=== PATIENT | male | born 1975 | race Caucasian/White ===

== ENCOUNTER 2019-05-21 13:19 | Inpatient (IN) | payer SELFPAY ==
[2019-05-21 13:42] LABS: Actual Bicarbonate (HCO3a) 20.7 mEq/L (22-28); Analyzer IN Cardio ER; Base Excess (BEa) -7.1 mEq/L (-2.0 to +3.0); CO2 Tension 49.7 mmHg (35.0-45.0); Calcium, Ionized 1.07 mmol/L (1.12-1.30); Carboxyhemoglobin (COHb) 3.8 gm% (0.0-3.0); O2 Tension (PaO2) 93.3 mmHg (80.0-100.0); Potassium - ABG Lab 3.79 mmol/L (3.70-5.30); Puncture Site RRA; pH, Arterial 7.24 (7.35-7.45)
[2019-05-21 13:43] LABS: ALV-art Gradient 272.375 (0-20)
[2019-05-21] MEDS ORDERED: Piperacillin/Tazobactam 4.5 GM VIAL ONE (13:50)
--- NOTE | 2019-05-21 13:52 | RAD ---
PORTABLE AP CHEST XRAY: HISTORY: Post CPR. COMPARISON: None. FINDINGS: Endotracheal tube is noted in place with the tip overlying T4-5 level and above the level of the padmini na. Nasogastric tube has been placed, and the tip overlies the distal esophagus. The most proximal sidehole is seen at the level of the christiane. Nasogastric tube should be advanced. Cardiac silhouett e is magnified by projection. Pulmonary vasculature is within normal limits. No pneumothorax or ple ural effusion is seen. A cardiac pacing device overlies the right lower chest/upper abdomen. Osseou s structures have a normal appearance. IMPRESSION: 1. Nasogastric tube noted in place which overlies the mid to distal esophagus and should be advanced . 2. Endotracheal tube noted in place which is above the level of the christiane. POS: JORGITO
--- NOTE | 2019-05-21 13:54 | RAD ---
AP ABDOMINAL RADIOGRAPH: HISTORY: CPR progress. Nasogastric tube placement. COMPARISON: Chest x-ray also obtained on this date prior to this exam. FINDINGS: A nasogastric tube was seen on the comparison chest x-ray and overlies the mid to distal esophagus, a nd the nasogastric tube should be advanced. Nasogastric tube is not seen on this view of the abdomen . Visualized bowel gas pattern is nonspecific. Pacing devices overlie the left abdomen and right lo wer chest. Osseous structures have a normal appearance. No suspicious visualized on this limited ex am. IMPRESSION: Nasogastric tube is not seen overlying the upper abdomen. Comparison chest x-ray obtained on this da te notes that the tip of the nasogastric tube overlies the mid to distal esophagus, and the nasogastr ic tube should be advanced. POS: JORGITO
[2019-05-21 14:02] LABS: #Lymphocytes 0.8 thou/uL (1.20-3.40); #Monocytes 0.4 thou/uL (0.11-0.59); #Neutrophils 9.7 thou/uL (1.40-6.50); %Basophils 0.1 % (0.0-1.0); %Eosinophils 0.3 % (0.0-10.0); %Lymphocytes 6.9 % (21.0-51.0); %Neutrophils 88.7 % (42.0-75.0); Hemoglobin 17.4 g/dL (14.0-18.0); Mean Corpuscular HGB CONC 33.3 g/dL (32.0-36.0); Mean Corpuscular Volume 93.1 fL (78.0-98.0); Platelet Count 139 thou/uL (130-400); RBC Distribution Width 12.3 % (11.5-14.5); Red Blood Cell (RBC) Count 5.61 mill/uL (4.70-6.10); White Blood Cell (WBC) Count 10.9 thou/uL (4.8-10.8)
[2019-05-21] MEDS ORDERED: Fentanyl 100 MCG/2 ML VIAL ONE (14:06)
[2019-05-21 14:20] LABS: Phosphorus 4.8 mg/dL (2.3-4.7)
[2019-05-21 14:22] LABS: ALT (SGPT) 42 U/L (8-55); AST (SGOT) 68 U/L (5-34); Albumin 3.9 g/dL (3.5-5.0); Alkaline Phosphatase 78 U/L (40-150); Anion Gap 17 mmol/L (10-20); BUN (Urea Nitrogen) 11 mg/dL (8.9-20.6); Bilirubin, Total 0.4 mg/dL (0.2-1.2); CK (CPK) 959 U/L (30-200); Calc. Creatinine Clearance 0 mL/min (70-130); Calcium 7.8 mg/dL (7.8-10.44); Carbon Dioxide 21 mmol/L (22-29); Chloride 103 mmol/L (98-107); Estimated GFR-MDRD Greater than 90; Glucose 107 mg/dL (70-105); Lipase 12 U/L (8-78); Potassium 3.9 mmol/L (3.5-5.1); Protein, Total 6.9 g/dL (6.0-8.3); Sodium 137 mmol/L (136-145)
[2019-05-21 14:30] LABS: Actual Bicarbonate (HCO3a) 21.1 mEq/L (22-28); Analyzer IN Cardio ER; Base Excess (BEa) -4.6 mEq/L (-2.0 to +3.0); CO2 Tension 41.2 mmHg (35.0-45.0); Calcium, Ionized 1.05 mmol/L (1.12-1.30); Carboxyhemoglobin (COHb) 3.1 gm% (0.0-3.0); Hemoglobin (Hb) 16.7 g/dL (14.0-18.0); O2 Tension (PaO2) 66.6 mmHg (80.0-100.0); Potassium - ABG Lab 4.08 mmol/L (3.70-5.30); pH, Arterial 7.33 (7.35-7.45)
[2019-05-21 14:32] LABS: Puncture Site RRA
[2019-05-21 14:32] LABS: CKMB 30.2 ng/mL (0-6.6)
[2019-05-21] MEDS ORDERED: fentaNYL Citrate/PF 2,000 MCG in Sodium Chloride 0.9% 60 ML IV SCH ×2 (14:49→16:52)
--- NOTE | 2019-05-21 14:52 | CT ---
Exam: CT brain PROVIDED CLINICAL HISTORY: Altered mental status COMPARISON: None FINDINGS: The ventricular system is normal in size and morphology. No evidence for intracranial hemorrhage or mass effect. The extracranial soft tissues and osseous structures demonstrate no evidence for an acute abnormality. IMPRESSION: No evidence for intracranial hemorrhage or mass effect.
[2019-05-21 14:57] LABS: Acetaminophen Less than 6.0 mcg/mL (10.0-30.0); Alcohol 126 mg/dL (Less than 10); Salicylate Less than 8.0 mg/dL (15.0-30.0)
[2019-05-21] MEDS ORDERED: Lorazepam 2 MG/ML VIAL ONE (15:02)
[2019-05-21] MEDS ORDERED: Propofol 1,000 MG/100 ML VIAL IV ONE (15:07)
[2019-05-21 16:04] LABS: Bacteria/HPF None Seen HPF (None Seen); Bilirubin Negative (Negative); Blood, Urine 2+ (Negative); Clarity Clear (Clear); Glucose, Urine (Dipstick) 70 mg/dL (Negative); Leukocyte Negative Leu/uL (Negative); Nitrite Negative (Negative); Protein, Urine (Dipstick) 70 mg/dL (Neg-Trace); RBC/HPF 0-3 HPF (0-3); Squamous Epithelial 0-3 HPF (0-3); Urobilinogen Normal mg/dL (Less than 2); WBC/HPF 0-3 HPF (0-3)
[2019-05-21 16:06] LABS: Amphetamine Not Detected (NotDetected); Barbiturates Screen Not Detected (NotDetected); Benzodiazepine Screen Not Detected (NotDetected); Cocaine Metabolite Screen Not Detected (NotDetected); Medtox Control Line Valid? VALID (VALID); Medtox Reader # READER 4; Methadone Not Detected (NotDetected); Methamphetamine Not Detected (NotDetected); Opiate Screen Not Detected (NotDetected); Oxycodone Screen Not Detected (NotDetected); Phencyclidine (PCP) Not Detected (NotDetected); THC/Cannabinoid Screen Not Detected (NotDetected); Tricyclic Screen Not Detected (NotDetected)
[2019-05-21 16:16] LABS: Sperm/HPF 1+ HPF (None Seen)
[2019-05-21] MEDS ORDERED: Ondansetron ODT 4 MG TAB SL PRN (16:23)
[2019-05-21] MEDS ORDERED: Sodium Chloride 0.9% 1,000 ML IV SCH (16:23)
[2019-05-21] MEDS ORDERED: Ondansetron PF 4 MG/2 ML Vial IVP PRN ×2 (16:23→16:50)
[2019-05-21] MEDS ORDERED: Propofol 1,000 MG/100 ML VIAL IV PRN ×2 (16:27→16:50)
[2019-05-21] MEDS ORDERED: Propofol BOLUS 1,000 MG/100 ML VIAL IV PRN ×2 (16:27→16:52)
[2019-05-21] MEDS ORDERED: Dextrose 50% Abboject 50 ML SYRINGE ONE (16:37)
[2019-05-21] MEDS: Dextrose 5 % And 0.9 % NaCl 1,000 ML IV SCH (16:45)
--- NOTE | 2019-05-21 16:46 | RAD ---
Portable frontal chest radiograph: 05/21/2019 COMPARISON: 05/21/2019 HISTORY: Intubated patient FINDINGS: This study was performed at 4:23 PM and compared to the study performed 1:11 PM. Stable end otracheal tube. Nasogastric tube has been advanced. Distal tip of nasogastric tube overlies the gastric air bubble. Heart and mediastinal contours are stable. No lobar consolidation or alveolar jackie ma. Supine imaging is provided, limiting assessment for pneumothorax and pleural fluid. IMPRESSION: Portable chest radiograph as detailed above.
[2019-05-21] MEDS ORDERED: Lorazepam 2 MG/ML VIAL SLOW IVP PRN (16:50)
[2019-05-21] MEDS ORDERED: Ventilator Sedation Protocol 1 EACH FS ONE (16:50)
[2019-05-21] MEDS ORDERED: Dextrose 50% Abboject 50 ML SYRINGE SLOW IVP PRN (16:50)
[2019-05-21] MEDS ORDERED: Dextrose 5% in Water 1,000 ML IV PRN (16:50)
[2019-05-21] MEDS ORDERED: Fentanyl BOLUS 250 ML IVPB PRN (16:52)
[2019-05-21] MEDS ORDERED: DISCONTINUE PREVIOUS NARCOTIC PAIN MEDICATIONS AND BENZODIAZEPINES FS SCH (16:52)
[2019-05-21] MEDS ORDERED: Morphine 2 MG/ML SYRINGE SLOW IVP PRN (16:52)
[2019-05-21 17:07] LABS: #Lymphocytes 2.3 thou/uL (1.20-3.40); #Monocytes 0.8 thou/uL (0.11-0.59); #Neutrophils 13.6 thou/uL (1.40-6.50); %Basophils 0.1 % (0.0-1.0); %Eosinophils 0.3 % (0.0-10.0); %Lymphocytes 13.8 % (21.0-51.0); %Monocytes 4.9 % (0.0-10.0); Mean Corpuscular HGB CONC 32.8 g/dL (32.0-36.0); Mean Corpuscular Hemoglobin 30.5 pg (27.0-31.0); Mean Corpuscular Volume 93.1 fL (78.0-98.0); Mean Platelet Volume 7.1 fL (7.4-10.4); Platelet Count 159 thou/uL (130-400); RBC Distribution Width 12.2 % (11.5-14.5); Red Blood Cell (RBC) Count 5.58 mill/uL (4.70-6.10); White Blood Cell (WBC) Count 16.8 thou/uL (4.8-10.8)
[2019-05-21 17:30] LABS: ALT (SGPT) 46 U/L (8-55); AST (SGOT) 97 U/L (5-34); Albumin 3.7 g/dL (3.5-5.0); Alkaline Phosphatase 76 U/L (40-150); Anion Gap 14 mmol/L (10-20); BUN (Urea Nitrogen) 11 mg/dL (8.9-20.6); Bilirubin, Total 0.7 mg/dL (0.2-1.2); Calc. Creatinine Clearance 0 mL/min (70-130); Calcium 7.8 mg/dL (7.8-10.44); Carbon Dioxide 22 mmol/L (22-29); Chloride 106 mmol/L (98-107); Estimated GFR-MDRD Greater than 90; Globulin 2.9 g/dL (2.4-3.5); Glucose 84 mg/dL (70-105); Potassium 4.3 mmol/L (3.5-5.1); Protein, Total 6.6 g/dL (6.0-8.3); Sodium 138 mmol/L (136-145)
[2019-05-21 17:44] VITALS: BMI 23.0
--- NOTE | 2019-05-21 18:35 | PDOC.FPRHP ---
- History of Present Illness Chief Complaint: AMS, Found Down History of Present Illness: The patient was incapacitated at the time of the evaluation, so the HPI was obtained from ED staff and relatives who happened to be in the ED. Mr. Mckeon has allegedly been espousing suicidal ideations over the past three days and the patient has been drinking whiskey. Family members also suspect that the patient may have overdosed on insulin, which he uses to control his Type 1 Diabetes. He was last seen at 0815 and he was found down at 1100 by his mother, at which time EMS were notified. His initial blood glucose was too low to register, and he was subsequently found to be in PEA. CPR with chest compression was performed for 3 minutes, at which time ROSC was achieved. He was intubated in the field and transported to the ED. ED Course: While in the ED, blood glucose was stabilized to a value of 104. He remained intubated, and EKG showed a rhythm consistent with sinus tachycardia. Physical exam yielded pinpoint pupils. CXR revealed no acute cardiopulmonary processes and serum EtOH levels were measured at 126. - Allergies/Adverse Reactions Allergies Allergy/AdvReac Type Severity Reaction Status Date / Time No Known Drug Allergies Allergy Unverified 05/21/19 14:47 - Home Medications Medication Instructions Recorded Confirmed Type HumuLIN 70/30 15 unit SC HS 05/21/19 05/21/19 History HumuLIN 70/30 30 unit SC DAILY-AC 05/21/19 05/21/19 History - History PMHx: DM1, SI, EtOH Abuse PSHx: Unknown FHx: Unknown Social: EtOH Abuse - Review of Systems ROS unobtainable: due to endotracheal tube - Vital signs BP: [138/80] HR: [74] RR: [] Tmax: [98.8] Pox: []% on [] Wt: [] - Physical Exam Constitutional: other (Intubated) HEENT: no scleral icterus, MMM, other (Pinpoint pupils) Neck: supple, FROM, trachea midline, no JVD Chest: no lesions Heart: RRR, normal S1/S2, no murmurs/rubs/gallops, pulses present, no edema Lungs: other (Intubated) Abdomen: soft, non-tender, no masses/distention, other (Diminished bowel sounds) Musculoskeletal: normal structure Neurological: other (The patient seized in the ED during the examination and was given 2 mg Alprazolam) Skin: no rash/lesions, no jaundice Heme/Lymphatic: no purpura FMR H&P: Results - Labs Result Diagrams: 05/21/19 17:01 05/21/19 17:01 Lab results: WBC 16.8 thou/uL (4.8-10.8) H 05/21/19 17:01 Hgb 17.0 g/dL (14.0-18.0) 05/21/19 17:01 Hct 51.9 % (42.0-52.0) 05/21/19 17:01 MCV 93.1 fL (78.0-98.0) 05/21/19 17:01 Plt Count 159 thou/uL (130-400) 05/21/19 17:01 Neutrophils % 81.0 % (42.0-75.0) H 05/21/19 17:01 ABG pH 7.33 (7.35-7.45) L 05/21/19 14:26 ABG pCO2 41.2 mmHg (35.0-45.0) 05/21/19 14:26 ABG pO2 66.6 mmHg (80.0-100.0) L 05/21/19 14:26 Sodium 138 mmol/L (136-145) 05/21/19 17:01 Potassium 4.3 mmol/L (3.5-5.1) 05/21/19 17:01 Chloride 106 mmol/L (98-107) 05/21/19 17:01 Carbon Dioxide 22 mmol/L (22-29) 05/21/19 17:01 BUN 11 mg/dL (8.9-20.6) 05/21/19 17:01 Creatinine 0.82 mg/dL (0.7-1.3) 05/21/19 17:01 Glucose 84 mg/dL (70-105) 05/21/19 17:01 Calcium 7.8 mg/dL (7.8-10.44) 05/21/19 17:01 Total Bilirubin 0.7 mg/dL (0.2-1.2) 05/21/19 17:01 AST 97 U/L (5-34) H 05/21/19 17:01 ALT 46 U/L (8-55) 05/21/19 17:01 Alkaline Phosphatase 76 U/L (40-150) 05/21/19 17:01 Creatine Kinase 959 U/L (30-200) H 05/21/19 13:49 CK-MB (CK-2) 30.2 ng/mL (0-6.6) H* 05/21/19 13:48 Serum Total Protein 6.6 g/dL (6.0-8.3) 05/21/19 17:01 Albumin 3.7 g/dL (3.5-5.0) 05/21/19 17:01 Lipase 12 U/L (8-78) 05/21/19 13:49 Urine Ketones Negative mg/dL (Negative) 05/21/19 14:20 Urine Blood 2+ (Negative) A 05/21/19 14:20 Urine Nitrite Negative (Negative) 05/21/19 14:20 Ur Leukocyte Esterase Negative Angelo/uL (Negative) 05/21/19 14:20 Urine RBC 0-3 HPF (0-3) 05/21/19 14:20 Urine WBC 0-3 HPF (0-3) 05/21/19 14:20 Ur Squamous Epith Cells 0-3 HPF (0-3) 05/21/19 14:20 Urine Bacteria None Seen HPF (None Seen) 05/21/19 14:20 FMR H&P: A/P - Problem List (1) Acute hypoxemic respiratory failure Current Visit: Yes Status: Acute Code(s): J96.01 - ACUTE RESPIRATORY FAILURE WITH HYPOXIA (2) Diabetes Current Visit: Yes Status: Acute Code(s): E11.9 - TYPE 2 DIABETES MELLITUS WITHOUT COMPLICATIONS (3) ETOH abuse Current Visit: Yes Status: Acute Code(s): F10.10 - ALCOHOL ABUSE, UNCOMPLICATED (4) Suicidal behavior Current Visit: Yes Status: Acute Code(s): R46.89 - OTHER SYMPTOMS AND SIGNS INVOLVING APPEARANCE AND BEHAVIOR (5) Hypoglycemia Current Visit: Yes Status: Acute Code(s): E16.2 - HYPOGLYCEMIA, UNSPECIFIED (6) SIRS (systemic inflammatory response syndrome) Current Visit: Yes Status: Acute Code(s): R65.10 - SIRS OF NON-INFECTIOUS ORIGIN W/O ACUTE ORGAN DYSFUNCTION - Plan 1. AMS, 2/2 to Hypoglycemia vs. EtOH Abuse vs. Infectious Etiology -Patient found unresponsive with undetectable blood glucose, EtOH likely a contributing factor -Elevated WBCs and low spO2 meet criteria for SIRS -Blood cultures and urine cultures drawn in ED -Empiric antibiotic therapy of Vancomycin and Zosyn initiated -Patient currently intubated and on respiratory support -Respiratory Consulted -Witness seizure in the ED - Alprazolam 2 mg administered immediately -Hypoglycemia Protocol -Q1H Accuchecks -Continue to monitor for break-through seizures - administer Alprazolam as needed -Admit to the ICU with close monitoring 2. DM, Type 1 -Hypoglycemia Protocol -Q1H Accuchecks -Determine type and amount of daily insulin requirement from patient's family 3. Suicidal Ideation -Consult MHMR following stabilization 4. EtOH Abuse -Consult MHMR following stabilization Dispo: Patient's status remains guarded. Continue to protect airway and maintain respiratory support. Continue Hypoglycemia Protocol and Q1H Accuchecks. Await blood and urine cultures and DC antibiotics if cultures are negative after 48H. Expected LOS > 48H. FMR H&P: Upper Level - Plan Date/Time: 05/21/191820 I, Zeferino nieves PGY2, have evaluated this patient and agree with findings/ plan as outlined by internal affairs investigator resident. Pertinent changes/additions are listed here. 44yo M presents via EMS after going in to cardiac arrest and achieving ROSC. Pt intubated and most of the history was obtained from EMS/family. Pt reportedly had been saying for several days that he had intentions to kill himself and he had been drinking heavily. Pt was found down at home, noted cardiac arrest, administered 3min of CPR and achieved ROSC. Pt was intubated in ED and BG was read as "low" D50 administered and pt began to have seizure like activity. He was then put on propafol drip. Assesment and plan as follows. s/p rosc A- intubated and currently on propofol drip. Pt was in asystole prior to ROSC. P- admit to CCU -sedation protocol -D5W at 125/hr -consult pulm hypoglycemia A- likely cause of arrest and seizure like activity. P- D5W -hypoglycemia protocol -D50prn -accucheck q1 seizures A- likely from hypoglycemia, s/p ativan x2 and propofol drip P- continue propofol drip -will monitor for seizure like activity on sedation vacations/after extubation -consider EEG hypothermia/SIRS A- likely 2/2 hypoglycemia. started on vanc zosyn in ED P- continue ABX considering pts fragile state -f/u BCx, UCx Possible suicidal behavior A- pt family stated pt had SI days leading up to admission P- will re-eval once conscious and consult MHMR when medically stable EtOH abuse A- pt has hx of drinking lots of beer but recently took up liquor. Pt found by mary ann. ETOH 126 on admission P- ASE protocol, ativan prn CODE: full, will verify with next of kin Addendum - Attending - Attending Attestation Date/Time: 05/21/192032 I personally evaluated the patient and discussed the management with Dr. Payne /Cristina. H&P repeated by me. I agree with the History, Examination, Assessment and Plan documented above with any addition or exceptions noted below. 44 y/o with PMH of T1DM and alcohol abuse who was found down by his mother. EMS was called and pt found to be severely hypoglycemic and given D50 in the field. He then had 3 min PEA arrest with ROSC. Was evidently found with an empty bottle of Jamie Mckenzie. Had a witnessed seizure in the ER that resolved with ativan. HR 70, T 98.9, BP 100/68, RR 20, O2 sat 100% on vent Gen: intubated and sedated CV: normal s1/s2 no m, g,r Lungs: ctab Abd: soft nt/nd Ext: no c/c/e Neuro: no focal deficits- on propofol Labs and imaging reviewed 1) Severe hypogylcemia- on D5NS with D50 as needed to keeps sugars >80. q1 hr accucheck. Will try to get info on what type of insulin patient is on. 2) AMS- encephalopathy of unknown origin. Most likely from hypoglycemia- Will cover with Vanc/Zosyn to ensure infection not contributing. 3) PEA with ROSC- s/p intubated. Appreciate pulm recs. Trend troponins. 4) t1dm- treat hypoglycemia as above 5) alcohol abuse- ase protocol
[2019-05-21] MEDS: Lorazepam 2 MG/ML VIAL SLOW IVP PRN (19:40)
[2019-05-21] MEDS: Piperacillin/Tazobactam 4.5 GM in Sodium Chloride 0.9% 100 ML IVPB SCH (19:56)
[2019-05-21] MEDS: Multivitamins, Adult 10 ML, Folic Acid 1 MG, Thiamine HCl 100 MG in Dextrose 5 %-0.45 %... IV SCH (19:57)
[2019-05-21] MEDS: Famotidine/PF 20 mg/2ml Vial SLOW IVP SCH (19:58)
[2019-05-21] MEDS: Propofol 1,000 MG/100 ML VIAL IV PRN (20:00)
[2019-05-21] MEDS ORDERED: Dextrose 50% Abboject 50 ML SYRINGE SLOW IVP SCH (20:13)
[2019-05-21 20:36] LABS: Troponin I 0.508 ng/mL (< 0.028)
[2019-05-21] MEDS: Vancomycin HCl 1 GM in Premix Bag 1 BAG IVPB SCH (22:36)
[2019-05-21 23:35] LABS: Critical Call Chem Troponin I RESULT DECREASING; Troponin I 0.472 ng/mL (< 0.028)
[2019-05-22] MEDS: Propofol 1,000 MG/100 ML VIAL IV PRN (00:49)
[2019-05-22] MEDS: Dextrose 5 % And 0.9 % NaCl 1,000 ML IV SCH ×3 (00:50→17:28)
[2019-05-22] MEDS: Piperacillin/Tazobactam 4.5 GM in Sodium Chloride 0.9% 100 ML IVPB SCH ×4 (01:07→20:09)
[2019-05-22] MEDS: Lorazepam 2 MG/ML VIAL SLOW IVP PRN (03:07)
[2019-05-22] MEDS: Vancomycin HCl 1 GM in Premix Bag 1 BAG IVPB SCH (05:39)
--- NOTE | 2019-05-22 06:22 | PDOC.FM ---
- Subjective Subjective: resting comfortably, intubated. no acute events overnight. No seizure like activity. - Objective Vital Signs & Weight: Vital Signs (12 hours) Temp Pulse Resp Pulse Ox 05/22/19 06:00 18 05/22/19 04:00 100.4 F H 18 05/22/19 02:33 95 05/22/19 02:00 16 05/22/19 00:00 100.4 F H 18 05/21/19 22:20 70 05/21/19 22:00 16 05/21/19 20:00 98.9 F 16 100 Weight Weight 76.9 kg Most Recent Monitor Data Heart Rate from ECG 78 NIBP 130/65 NIBP BP-Mean 86 Respiration from ECG 16 SpO2 100 I&O: 05/20/19 05/21/19 05/22/19 06:59 06:59 06:59 Intake Total 1651 Output Total 3440 Balance -1789 Result Diagrams: 05/22/19 07:13 05/22/19 07:13 Phys Exam - Physical Examination Constitutional: NAD HEENT: moist MMs Neck: no JVD, supple Respiratory: no wheezing, clear to auscultation bilateral Cardiovascular: RRR, no significant murmur Gastrointestinal: soft, no distention Musculoskeletal: pulses present sedated Deviation from normal: sedated Skin: no rash, normal turgor Dx/Plan (1) Acute hypoxemic respiratory failure Code(s): J96.01 - ACUTE RESPIRATORY FAILURE WITH HYPOXIA Status: Acute (2) Diabetes Code(s): E11.9 - TYPE 2 DIABETES MELLITUS WITHOUT COMPLICATIONS Status: Acute (3) ETOH abuse Code(s): F10.10 - ALCOHOL ABUSE, UNCOMPLICATED Status: Acute (4) Suicidal behavior Code(s): R46.89 - OTHER SYMPTOMS AND SIGNS INVOLVING APPEARANCE AND BEHAVIOR Status: Acute (5) Hypoglycemia Code(s): E16.2 - HYPOGLYCEMIA, UNSPECIFIED Status: Acute (6) SIRS (systemic inflammatory response syndrome) Code(s): R65.10 - SIRS OF NON-INFECTIOUS ORIGIN W/O ACUTE ORGAN DYSFUNCTION Status: Acute - Plan Plan: PEA s/p rosc A- intubated and currently on propofol drip. Pt was in PEA prior to ROSC. Currently intubated on SIMV P- sedation protocol -D5W at 125/hr -vent mgmt and weaning per pulm/RT hypoglycemia A- likely cause of arrest and seizure like activity. overnight showed gradual increase in sugars to 120 most recently P- D5W -hypoglycemia protocol -D50prn -accucheck q2hr seizures A- likely from hypoglycemia, s/p ativan x2 and propofol drip P- continue propofol drip -will monitor for seizure like activity on sedation vacations/after extubation -consider EEG if it continues hypothermia/SIRS A- likely 2/2 hypoglycemia. started on vanc zosyn in ED P- continue ABX considering pts fragile state -f/u BCx, UCx Possible suicidal behavior A- pt family stated pt had SI days leading up to admission P- will re-eval once conscious and consult MHMR when medically stable EtOH abuse A- pt has hx of drinking lots of beer but recently took up liquor. Pt found by mary ann. ETOH 126 on admission. s/p banana bag P- ASE protocol, ativan prn CODE: full, will verify with next of kin Addendum - Attending - Attending Attestation Date/Time: 05/22/19 1039 I personally evaluated the patient and discussed the management with Dr. Evans at 0735am. I agree with the History, Examination, Assessment and Plan documented above with any addition or exceptions noted below. Metabolic encephalopathy from hypoglycemia Acute resp failure PEA with ROSC Alcohol abuse T1DM Fever to 100.4 -continue D5 as sugars in low 100s. Wean vent per pulmonology. Continue Vanc/ Zosyn until cx negative. ASE protocol.
[2019-05-22 07:20] LABS: Actual Bicarbonate (HCO3a) 24.7 mEq/L (22-28); Base Excess (BEa) 0.6 mEq/L (-2.0 to +3.0); Calcium, Ionized 1.15 mmol/L (1.12-1.30); Carboxyhemoglobin (COHb) 1.9 gm% (0.0-3.0); Hemoglobin (Hb) 15.4 g/dL (14.0-18.0); O2 Tension (PaO2) 93.3 mmHg (80.0-100.0); Potassium - ABG Lab 3.84 mmol/L (3.70-5.30); pH, Arterial 7.43 (7.35-7.45)
[2019-05-22 07:22] LABS: Puncture Site RRA
[2019-05-22 07:42] LABS: ALT (SGPT) 44 U/L (8-55); AST (SGOT) 109 U/L (5-34); Albumin 3.4 g/dL (3.5-5.0); Alkaline Phosphatase 71 U/L (40-150); Anion Gap 11 mmol/L (10-20); BUN (Urea Nitrogen) 10 mg/dL (8.9-20.6); Bilirubin, Total 1.2 mg/dL (0.2-1.2); CK (CPK) 2733 U/L (30-200); Calc. Creatinine Clearance 113 mL/min (70-130); Calcium 8.2 mg/dL (7.8-10.44); Carbon Dioxide 28 mmol/L (22-29); Chloride 104 mmol/L (98-107); Estimated GFR-MDRD Greater than 90; Globulin 2.6 g/dL (2.4-3.5); Glucose 147 mg/dL (70-105); Potassium 3.8 mmol/L (3.5-5.1); Sodium 139 mmol/L (136-145)
[2019-05-22] MEDS: Famotidine/PF 20 mg/2ml Vial SLOW IVP SCH ×2 (08:02→20:39)
[2019-05-22 08:06] LABS: #Eosinphils 0.1 thou/uL (0.0-0.7); #Lymphocytes 2.6 thou/uL (1.20-3.40); #Monocytes 0.8 thou/uL (0.11-0.59); #Neutrophils 6.7 thou/uL (1.40-6.50); %Basophils 0.2 % (0.0-1.0); %Lymphocytes 25.3 % (21.0-51.0); %Monocytes 7.6 % (0.0-10.0); %Neutrophils 65.8 % (42.0-75.0); Hemoglobin 16.1 g/dL (14.0-18.0); Mean Corpuscular HGB CONC 33.5 g/dL (32.0-36.0); Mean Corpuscular Hemoglobin 30.4 pg (27.0-31.0); Mean Corpuscular Volume 90.7 fL (78.0-98.0); Mean Platelet Volume 7.4 fL (7.4-10.4); Platelet Count 87 thou/uL (130-400); Platelet Morphology Comment Appears Decreased; RBC Distribution Width 12.2 % (11.5-14.5); RBC Morphology Normal; Red Blood Cell (RBC) Count 5.29 mill/uL (4.70-6.10); White Blood Cell (WBC) Count 10.2 thou/uL (4.8-10.8)
[2019-05-22] MEDS ORDERED: Enoxaparin Sodium 40 MG/0.4 ML SYRINGE SC SCH (09:00)
[2019-05-22] MEDS ORDERED: Prevnar 13-Val Conj/PF 0.5 ML SYRINGE IM ONE (09:00)
[2019-05-22] MEDS ORDERED: DC Sedation Protocol FS ONE (09:51)
--- NOTE | 2019-05-22 10:18 | PRG ---
DATE OF SERVICE: 05/22/2019 SUBJECTIVE: Linda is a 44-year-old gentleman, who was found down yesterday, was intubated. This morning, he is much more awake. His creatinine is . All sedation withheld. OBJECTIVE: VITAL SIGNS: Blood pressure 126/76, saturations 100%, respirations are 18. GENERAL: He is responsive, appropriate. CHEST: Decreased breath sounds. No wheezing. CARDIAC: Normal S1 and S2. Negative mass. LABORATORY DATA: PO2 is 93, pCO2 , rate of 16, 40%. His lytes are normal. Creatinine is normal. ASSESSMENT: 1. Metabolic encephalopathy. 2. Respiratory failure. 3. Diabetes. 4. Alcohol abuse. PLAN: Decrease sedation. We will wean and extubate today. Otherwise continue supportive care, PT. One-half hour of critical time. Job ID: [id number]
[2019-05-22] MEDS: Insulin Regular 300 UNITS/3 ML VIAL SC PRN ×4 (12:01→22:08)
--- NOTE | 2019-05-22 13:00 | CON ---
DATE OF CONSULTATION: 05/21/2019 HISTORY OF PRESENT ILLNESS: Sharif Mckeon is a 44-year-old gentleman, who was found down at home. His mother at the bedside gave a complete and adequate history, stated that he has been depressed for a period of time. He has longstanding history of alcohol abuse, suicidal tendencies, recent diagnosis of uncontrolled diabetes, for which he was placed on long-acting insulin. He was to be followed up at the clinic in [place], this morning, he ate breakfast, took his medication apparently, and when the mother called and came to the house, he was ashen, unresponsive. EMS was called and his blood sugar was undetectable. He was therefore given D50. He was intubatedat home and brought to [facility]. In the ER, he was apparently seizing and he was given some Ativan. He is now in the ICU, intubated, on the vent. Mother gives additional information. PAST MEDICAL HISTORY: Pertinent for otherwise alcoholic-induced pancreatitis, previous DVT many years ago one year cou[place]in, tobacco abuse, newly diagnosed diabetes. PAST SURGICAL HISTORY: None. HABITS: Alcohol; drinks beer, now recently started whisky. MEDICATIONS: At the time of recent discharge had included 70/30 insulin 30 units in the morning,20 units pm_ in the evening; and aspirin. PHYSICAL EXAMINATION: GENERAL: In the ICU, he is intubated, on the vent. VITAL SIGNS: Temperature 98, blood pressure 132/73_, pulse 80. HEENT: Pupils are pinpoint. CHEST: Decreased breath sounds. No wheezing. CARDIAC: Normal S1, S2. No gallops. ABDOMEN: No masses. LABORATORY DATA: His last blood sugar was 130. White count 10,000. His lytes were normal. IMPRESSION: 1. Metabolic encephalopathy secondary to hypoglycemia. 2. Recent diabetes with suicidal tendencies , depression it appears that he took his medication, though his blood sugar was really low. 3. alcoholic pancreatitis, alcohol abuse, previous deep vein thrombosis. PLAN: Continue hydration with D5 if his blood sugar remains low. He is going to need D10 IV. Reassess situation in the morning. _agree with empiric antibiotics, supportive care. 45 minutes of critical time. Job ID: [id number] MTDD
[2019-05-22] MEDS: Multivitamins, Adult 10 ML, Folic Acid 1 MG, Thiamine HCl 100 MG in Dextrose 5 %-0.45 %... IV SCH (17:38)
[2019-05-23] MEDS: Piperacillin/Tazobactam 4.5 GM in Sodium Chloride 0.9% 100 ML IVPB SCH ×2 (02:00→07:52)
[2019-05-23] MEDS: Dextrose 5 % And 0.9 % NaCl 1,000 ML IV SCH ×2 (02:00→07:53)
[2019-05-23 05:41] LABS: #Eosinphils 0.1 thou/uL (0.0-0.7); #Lymphocytes 1.9 thou/uL (1.20-3.40); #Monocytes 0.3 thou/uL (0.11-0.59); #Neutrophils 3.9 thou/uL (1.40-6.50); %Basophils 0.2 % (0.0-1.0); %Eosinophils 1.9 % (0.0-10.0); %Lymphocytes 30.1 % (21.0-51.0); %Monocytes 4.5 % (0.0-10.0); %Neutrophils 63.2 % (42.0-75.0); Mean Corpuscular Hemoglobin 30.7 pg (27.0-31.0); Mean Corpuscular Volume 90.5 fL (78.0-98.0); Mean Platelet Volume 7.5 fL (7.4-10.4); Platelet Count 60 thou/uL (130-400); RBC Distribution Width 11.9 % (11.5-14.5); Red Blood Cell (RBC) Count 4.89 mill/uL (4.70-6.10); White Blood Cell (WBC) Count 6.2 thou/uL (4.8-10.8)
[2019-05-23 05:55] LABS: ALT (SGPT) 45 U/L (8-55); AST (SGOT) 91 U/L (5-34); Albumin 3.4 g/dL (3.5-5.0); Alkaline Phosphatase 68 U/L (40-150); Anion Gap 10 mmol/L (10-20); BUN (Urea Nitrogen) 8 mg/dL (8.9-20.6); Bilirubin, Total 1.2 mg/dL (0.2-1.2); Calc. Creatinine Clearance 121 mL/min (70-130); Calcium 8.4 mg/dL (7.8-10.44); Carbon Dioxide 26 mmol/L (22-29); Chloride 106 mmol/L (98-107); Estimated GFR-MDRD Greater than 90; Globulin 2.6 g/dL (2.4-3.5); Glucose 168 mg/dL (70-105); Potassium 3.4 mmol/L (3.5-5.1); Sodium 139 mmol/L (136-145)
[2019-05-23] MEDS: Insulin Regular 300 UNITS/3 ML VIAL SC PRN ×2 (06:10→11:04)
--- NOTE | 2019-05-23 06:42 | PDOC.FM ---
Addendum entered and electronically signed by Ceci Vázquez MD 05/23/19 09:33 : Possible suicidal behavior - pt family stated pt had SI days leading up to admission. 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 NAEO. No complaints this AM. Wants to go home. Denies any fever/chills, N/V/D or constipation as well as any SI or h/o depression/ anxiety. Limited memory of events leading up to admission. Admits to drinking 1/ 5th of gin. Per nursing has significant short term memory deficits since awakening. Has been tolerating PO well. - Objective MAR Reviewed: Yes Vital Signs & Weight: Vital Signs (12 hours) Temp Pulse Ox 05/23/19 04:00 99.4 F 05/23/19 00:00 99.1 F 05/22/19 20:00 99.2 F 97 Weight Weight 76.9 kg Most Recent Monitor Data Heart Rate from ECG 64 NIBP 143/74 NIBP BP-Mean 97 Respiration from ECG 21 SpO2 96 I&O: 05/21/19 05/22/19 05/23/19 06:59 06:59 06:59 Intake Total 1651 3847 Output Total 3440 4000 Balance -1789 -153 Result Diagrams: 05/24/19 04:52 05/24/19 04:52 Phys Exam - Physical Examination Constitutional: NAD HEENT: moist MMs, sclera anicteric Neck: supple, full ROM Respiratory: no wheezing, no rales, no rhonchi, clear to auscultation bilateral Cardiovascular: RRR, no significant murmur Gastrointestinal: soft, non-tender, no distention Musculoskeletal: no edema, pulses present Neurological: non-focal, moves all 4 limbs Psychiatric: normal affect, A&O x 3 Skin: no rash, normal turgor Dx/Plan (1) Acute hypoxemic respiratory failure Code(s): J96.01 - ACUTE RESPIRATORY FAILURE WITH HYPOXIA Status: Acute (2) Diabetes Code(s): E11.9 - TYPE 2 DIABETES MELLITUS WITHOUT COMPLICATIONS Status: Acute (3) ETOH abuse Code(s): F10.10 - ALCOHOL ABUSE, UNCOMPLICATED Status: Acute (4) Hypoglycemia Code(s): E16.2 - HYPOGLYCEMIA, UNSPECIFIED Status: Acute (5) SIRS (systemic inflammatory response syndrome) Code(s): R65.10 - SIRS OF NON-INFECTIOUS ORIGIN W/O ACUTE ORGAN DYSFUNCTION Status: Acute (6) Suicidal behavior Code(s): R46.89 - OTHER SYMPTOMS AND SIGNS INVOLVING APPEARANCE AND BEHAVIOR Status: Acute - Plan Plan: PEA s/p rosc - Pt was in PEA prior to ROSC in the field. Came in intubated on SIMV but is now s/p intubation on 05/22 @ 0955. - Will d/c D5W at 125/hr once tolerating PO well. hypoglycemia, improved - Likely cause of arrest and seizure like activity. Overnight showed gradual increase in sugars to 150s-160s most recently. - Will d/c D5WNS as patient is tolerating PO & increase resume home insulin regimen w/ SSI for meals. - Will also continue hypoglycemia protocol. - Accucheck ACHS now that patient is tolerating PO. seizures - Likely from hypoglycemia, s/p ativan x2 and propofol drip on admission but no activity noted since - Will continue to monitor closely for recurrent seizure like activity since now off propofol 2/2 extubation - Will consider an EEG if it continues hypothermia/SIRS - Likely 2/2 hypoglycemia. Started on vanc & zosyn in ED but only continuing zosyn for now pending urine & blood cultures. - Afebrile since 0400 on 05/22 w/ temp of 100.4F. Possible suicidal behavior - pt family stated pt had SI days leading up to admission. 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 - will consult [facility] now that he is medically stable EtOH abuse - pt has hx of drinking lots of beer but recently took up liquor. Pt found by mary ann. ETOH 126 on admission. s/p banana bag - Will continue ASE protocol & ativan prn Dispo: Consider moving to the floor pending patient remains stable on RA and BG levels remains between 140-180 while inpatient. CODE: full IVFs: none Abx: Zosyn (05/21) VTE PPX: SCDs GI PPX: famotidine Addendum - Attending - Attending Attestation Date/Time: 05/23/19 1025 I personally evaluated the patient and discussed the management with Dr. Vázquez I agree with the History, Examination, Assessment and Plan documented above with any addition or exceptions noted below. 44 yo male with history of alcohol abuse admitted for cardiac arrest with ROSC HD# 2 Patient doing well. No respiratory difficulty overnight. No acute changes. Denies symptoms of alcohol withdrawal. Irritable on exam. VS, labs, and imaging reviewed. Agree with PE documented by resident. NAD. Elevated HR but regular. CTAB. 1. Cardiac arrest with PEA: ROSC in the field. Intubated x 24 hours. Trops positive. No change in EKG. Asymptomatic. Will proceed with workup now that patient at baseline. Unable to provide ASA at this time due to thrombocytopenia. Will consult cards today. Unable to tolerate statin due to liver disease and low lipid levels. 2. ASC: Cardiac injury present. cTnI elevated. Type 2 likely. Cards consulted for stress and ECHO. Unable to use ASA or statin at this time due to liver disease. 3. Alcohol abuse: Has been in rehab in the past. Does not have AA support group or sponsor. Family willing to help. Will place on ASC. Give long acting benzo x 1 due to irritability and tachycardia this morning. 4. DM: Recently started on insulin x 1 month. New dx. Has not been monitoring glucose at home regularly. Will use caution with insulin due to liver disease and likely low glycogen storage with risk for hypoglycemia. Would transition to metformin if able and other agent with low risk of hypoglycemia. 5. Hypoglycemic seizure: Glucose undetectable in the field. Discussed risk. 6. Alcoholic liver disease: Now with thrombocytopenia and low lipid panel. No ascites on exam. Would have workup outpatient with imaging and GI followup. 7. hx of VTE: Patient reports hx of VTE. Will use anticoagulant judiciously due to risk for bleeding. SCD in place. Patient unsure etiology. Monitor closely. 8. HTN: New dx. Will start ACEI. 9. SI behavior: Patient denies SI. Reports he was just drinking. Family members reports he has been struggling with alcohol use over the last 3 days. Was interested in stopping. Has been in contact with his preacher. [facility] after heart evaluation. 10. PPX: Lovenox when able to tolerate. H2 javier. Transfer to tele. Cards eval today. Pepe
[2019-05-23] MEDS: Famotidine/PF 20 mg/2ml Vial SLOW IVP SCH ×2 (07:53→20:08)
[2019-05-23] MEDS ORDERED: Potassium Chloride 20 MEQ TAB PO SCH (08:00)
--- NOTE | 2019-05-23 09:32 | PRG ---
DATE OF SERVICE: 05/23/2019 SUBJECTIVE: Sharif Mckeon is a 44-year-old gentleman, who is extubated yesterday. He is in no distress. He is now saying that he took extra amount of insulin. OBJECTIVE: VITAL SIGNS: Pulse is 93, blood pressure 137/75, saturations are 98%, and respirations 18. CHEST: No wheezing or crackles. CARDIAC: Normal S1 and S2. No gallops. LABORATORY DATA: Platelet count is only 60,000. Lytes are normal. ASSESSMENT: 1. Thrombocytopenia. 2. Hypoglycemia. 3. History of depression. PLAN: Discontinue antibiotics. [facility] consult. PT, supportive care. We will follow. Job ID: [id number]
[2019-05-23] MEDS ORDERED: Diazepam 10 MG/2 ML SYRINGE IVP SCH (10:15)
[2019-05-23] MEDS ORDERED: Diazepam 5 MG TAB PO PRN (10:43)
[2019-05-23] MEDS ORDERED: Diazepam 5 MG TAB PO SCH (10:45)
[2019-05-23 11:20] LABS: Hemoglobin 16.2 g/dL (14.0-18.0); Mean Corpuscular HGB CONC 32.9 g/dL (32.0-36.0); Mean Corpuscular Hemoglobin 29.5 pg (27.0-31.0); Mean Corpuscular Volume 89.9 fL (78.0-98.0); Mean Platelet Volume 8.6 fL (7.4-10.4); Platelet Count 58 thou/uL (130-400); RBC Distribution Width 12.2 % (11.5-14.5); Red Blood Cell (RBC) Count 5.48 mill/uL (4.70-6.10); White Blood Cell (WBC) Count 6.3 thou/uL (4.8-10.8)
[2019-05-23 11:26] LABS: Hemoglobin A1c 5.3 % (4.0-6.0)
[2019-05-23 11:36] LABS: Eosinophils 2 % (0-10); Lymphocytes 30 % (21-51); MDiff Complete? YES; Monocytes 4 % (0-10); Neutrophil 64 % (42-75); Platelet Morphology Comment Appears Decreased; RBC Morphology Normal
[2019-05-23 11:43] LABS: Cardiac Risk 1.6 (Less than 4.5)
[2019-05-23] MEDS ORDERED: HumaLOG 300 UNITS/3 ML VIAL SC PRN (11:57)
[2019-05-23] MEDS: Multivitamins, Adult 10 ML, Folic Acid 1 MG, Thiamine HCl 100 MG in Dextrose 5 %-0.45 %... IV SCH (20:31)
--- NOTE | 2019-05-23 20:44 | CON ---
DATE OF CONSULTATION: HISTORY OF PRESENT ILLNESS: Sharif Mckeon is a 44-year-old white male with previous history of hypercholesterolemia and diabetes. He apparently has been depressed recently telling his mother that he just wanted to end it all. He has an increasing alcohol consumption and apparently took extra insulin. He was then found by his mother approximately at 11 a.m., on May 21, on the floor and unresponsive. EMS was called, and his initial blood sugar was too low to register. He was given D50. He was found to be in pulseless electrical activity. CPR was started for 3 minutes, and he had a return of spontaneous circulation. He was intubated at the scene and transferred to the hospital. In the emergency room, he apparently had a seizure and was given Ativan 2 mg IV x2. The following day, he was awake and alert, then later was weaned and he was extubated. He denies any history of cardiac problems in the past. He denies any chest discomfort or shortness of breath. 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 MEDICATIONS: Humulin 70/30. ALLERGIES: NONE. OPERATIONS: None. SOCIAL HISTORY: He smokes. He was a heavy alcohol drinker. REVIEW OF SYSTEMS: Unremarkable. PHYSICAL EXAMINATION: VITAL SIGNS: Blood pressure 154/80, pulse of 88. HEENT: PERRL. NECK: Supple. CHEST: Clear. CARDIAC: S1 and S2 were normal without any S3, S4, or murmurs. Carotid upstrokes are normal without bruits. ABDOMEN: Normal bowel sounds without tenderness or organomegaly. EXTREMITIES: Revealed no clubbing, cyanosis, or edema. NEUROLOGIC: Grossly intact. LABORATORY DATA: EKG revealed normal sinus rhythm with left anterior fascicular block. Hemoglobin 16.2, hematocrit 49.3, white count 6300, platelets 58,000. Cholesterol 100, triglycerides 87, HDL 64, LDL 19. TSH is normal. Creatine kinase 1085. Sodium 139, potassium 3.4, chloride 106, carbon dioxide 26, BUN 8, creatinine 0.83. Troponin I of 0.508. Urine drug screen is unremarkable except for plasma alcohol of 126. IMPRESSION: 1. Cardiopulmonary arrest with pulseless electrical activity requiring 3 minutes of CPR. This certainly could have been due to severe hypoglycemia with depressed respirations, hypoxemia, and acidosis. He also has multiple cardiac risk factors. 2. Snt-SK-[id number] myocardial infarction, type 2. 3. Diabetes. 4. History of hypercholesterolemia according to the patient; however, his cholesterol is very low. 5. Smoker. PLAN: Situation was discussed with the patient. It was recommend that he have an echocardiogram performed to assess left ventricular function as well as adenosine Cardiolite testing to rule out significant coronary artery disease. However, he declines both of these tests and does not wish any cardiac evaluation. His echocardiogram and adenosine Cardiolite test will be canceled. Please contact me if he changes his mind and wishes to proceed with evaluation. Job ID: [id number] MTDD
[2019-05-23] MEDS ORDERED: HumuLIN 70/30 (300 UNITS/3 ML VIAL) SC SCH (21:00)
[2019-05-24] MEDS ORDERED: Diazepam 5 MG TAB PO PRN (04:00)
[2019-05-24 05:23] LABS: #Eosinphils 0.3 thou/uL (0.0-0.7); #Lymphocytes 2.1 thou/uL (1.20-3.40); #Monocytes 0.5 thou/uL (0.11-0.59); #Neutrophils 3.2 thou/uL (1.40-6.50); %Basophils 0.4 % (0.0-1.0); %Eosinophils 4.6 % (0.0-10.0); %Lymphocytes 34.6 % (21.0-51.0); %Monocytes 8.2 % (0.0-10.0); %Neutrophils 52.3 % (42.0-75.0); Hemoglobin 14.8 g/dL (14.0-18.0); Mean Corpuscular HGB CONC 34.3 g/dL (32.0-36.0); Mean Corpuscular Volume 90.3 fL (78.0-98.0); Mean Platelet Volume 7.8 fL (7.4-10.4); Platelet Count 71 thou/uL (130-400); RBC Distribution Width 12.1 % (11.5-14.5); Red Blood Cell (RBC) Count 4.77 mill/uL (4.70-6.10); White Blood Cell (WBC) Count 6.1 thou/uL (4.8-10.8)
[2019-05-24 05:44] LABS: ALT (SGPT) 46 U/L (8-55); AST (SGOT) 61 U/L (5-34); Albumin 3.7 g/dL (3.5-5.0); Alkaline Phosphatase 76 U/L (40-150); Anion Gap 11 mmol/L (10-20); BUN (Urea Nitrogen) 7 mg/dL (8.9-20.6); Bilirubin, Total 0.6 mg/dL (0.2-1.2); Calc. Creatinine Clearance 129 mL/min (70-130); Carbon Dioxide 27 mmol/L (22-29); Chloride 106 mmol/L (98-107); Estimated GFR-MDRD Greater than 90; Globulin 2.8 g/dL (2.4-3.5); Glucose 135 mg/dL (70-105); Potassium 3.6 mmol/L (3.5-5.1); Protein, Total 6.5 g/dL (6.0-8.3); Sodium 140 mmol/L (136-145)
[2019-05-24] MEDS ORDERED: HumuLIN 70/30 (300 UNITS/3 ML VIAL) SC SCH ×3 (07:28→07:30)
--- NOTE | 2019-05-24 07:30 | PDOC.FM ---
- Subjective Subjective: NAEO. Patient did not require any SSI overnight but BG levels were consistent in the 180-200 range. Otherwise, no acute events. Continues to deny any SI. No complaints this AM. Wants to go home. - Objective MAR Reviewed: Yes Vital Signs & Weight: Vital Signs (12 hours) Temp Pulse Resp BP Pulse Ox 05/24/19 04:39 96.6 F L 65 18 160/76 H 94 L 05/24/19 00:26 98.6 F 69 18 156/85 H 95 05/23/19 20:00 98 Weight Weight 76.9 kg Most Recent Monitor Data Heart Rate from ECG 88 NIBP 154/80 NIBP BP-Mean 104 Respiration from ECG 22 SpO2 97 I&O: 05/23/19 05/24/19 05/25/19 06:59 06:59 06:59 Intake Total 3847 2693 Output Total 4000 2325 Balance -153 368 Result Diagrams: 05/24/19 04:52 05/24/19 04:52 Phys Exam - Physical Examination Constitutional: NAD HEENT: moist MMs, sclera anicteric Neck: supple, full ROM Respiratory: no wheezing, no rales, no rhonchi, clear to auscultation bilateral Cardiovascular: RRR, no significant murmur Gastrointestinal: soft, non-tender Neurological: non-focal, moves all 4 limbs Psychiatric: normal affect, A&O x 3 Skin: no rash Dx/Plan (1) Acute hypoxemic respiratory failure Code(s): J96.01 - ACUTE RESPIRATORY FAILURE WITH HYPOXIA Status: Acute (2) Diabetes Code(s): E11.9 - TYPE 2 DIABETES MELLITUS WITHOUT COMPLICATIONS Status: Acute (3) ETOH abuse Code(s): F10.10 - ALCOHOL ABUSE, UNCOMPLICATED Status: Acute (4) Hypoglycemia Code(s): E16.2 - HYPOGLYCEMIA, UNSPECIFIED Status: Acute (5) SIRS (systemic inflammatory response syndrome) Code(s): R65.10 - SIRS OF NON-INFECTIOUS ORIGIN W/O ACUTE ORGAN DYSFUNCTION Status: Acute (6) Suicidal behavior Code(s): R46.89 - OTHER SYMPTOMS AND SIGNS INVOLVING APPEARANCE AND BEHAVIOR Status: Acute - Plan Plan: PEA s/p rosc - Pt was in PEA prior to ROSC in the field. Came in intubated on SIMV but is s/ p intubation on 05/22 @ 0955. DMI - Will adjust home insulin regimen w/ SSI for meals PRN to maintain BG levels < 140 if possible prior to d/c. - Will also continue hypoglycemia protocol. - Accuchecks ACHS. Type II AL: - No ischemic EKG changes on admission & repeat EKG yesterday. Troponins on admission most likely elevated 2/2 demand ischemia per cardiology & did eventually downtrend. Patient remains asymptomatic. - Dr. Tao consulted yesterday and recommended an echo & stress test but patient refused. Unable to calculate 10 year ASCVD risk score 2/2 LDL being only 19. A1c also only 5.2 showing excellent BG control. hypothermia/SIRS - Likely 2/2 hypoglycemia on admission. Temp low this AM but all other vitals WNLs. Will continue to monitor temperature closely. Possible suicidal behavior - pt family stated pt had SI days leading up to admission. 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 - Consulted [facility] yesterday now that he is medically stable. D/c status pending their recs. EtOH abuse - pt has hx of drinking lots of beer but recently took up liquor. Pt found by [employer]. ETOH 126 on admission. s/p banana bag - Will continue ASE protocol & ativan prn Thrombocytopenia - Plts up to 71 from 60 yesterday AM. Peripheral smear pending. Will continue to monitor closely. SCDs only for VTE ppx. Seizures, resolved - Likely from hypoglycemia, s/p ativan x2 and propofol drip on admission but no activity noted since - Will continue to monitor closely for recurrent seizure like activity since now off propofol 2/2 extubation - Will consider an EEG if it continues hypoglycemia, resolved - Likely cause of arrest and seizure like activity. Overnight showed gradual increase in sugars to 150s-160s most recently. Dispo: Continue close monitoring on the floor pending [facility] recs for d/c placement. CODE: full IVFs: none Abx: none VTE PPX: SCDs GI PPX: protonix Addendum - Attending - Attending Attestation Date/Time: 05/24/19 1044 I personally evaluated the patient and discussed the management with Dr. Vázquez I agree with the History, Examination, Assessment and Plan documented above with any addition or exceptions noted below. 44 yo male with history of alcohol abuse admitted for cardiac arrest with ROSC HD# 3 Patient ready to go home. No acute events overnight. Declined cardiac workup. Family encouraged workup but patient declined due to "not wanting to know." Patient noticed increased swelling of arm after IV removal. VS, labs, and imaging reviewed. 1. Cardiac arrest with PEA: ROSC in the field. Intubated x 24 hours. Asymptomatic. No arrhythmias on tele monitoring. 2. ASC: Cardiac injury present. cTnI elevated. Type 2 likely. Cards consulted for stress and ECHO but patient declined. Will add ASA. 3. Alcohol abuse: Has been in rehab in the past. Does not have AA support group or sponsor. Family willing to help. Continue ASC protocol. No need for medication at this time. 4. DM: Recently started on insulin x 1 month. New dx. Has not been monitoring glucose at home regularly. Unable to use A1c due to disease and increased distruction/turnover of RBCs. Need to stop insulin. Switch to oral if needed. Also consider short acting with SS at home due to risk. Needs close follow up outpatient. 5. Hypoglycemic seizure: Glucose undetectable in the field. Discussed risk. Stop insulin. 6. Alcoholic liver disease: Now with thrombocytopenia and low lipid panel. No ascites on exam. Would have workup outpatient with imaging and GI followup. 7. hx of VTE: Now with edema to upper extremity. Will sono. Add thrombotic panel if positive due to previous history of unsure etiology. 8. HTN: New dx. Continue ACEI. Adjust dose for goal of 120/70. 9. SI behavior: Patient denies SI. Reports he was just drinking. Family members reports he has been struggling with alcohol use over the last 3 days. Was interested in stopping. Has been in contact with his preacher. [facility] today. Dispo pending their findings. 10. PPX: Start lovenox today. Platelets improving. Transfer to medical floor. [facility] evaluation today. SHARRI vázquez. Pepe
--- NOTE | 2019-05-24 15:11 | ULT ---
EXAM: LEFT UPPER EXTREMITY VENOUS DUPLEX ULTRASOUND INCLUDING COLOR AND SPECTRAL DOPPLER IMAGIN05/24/19 HISTORY: Altered mental status, intubation, left arm swelling and edema. FINDINGS: The left internal jugular and subclavian veins show phasic flow. There is obstructing intraluminal th rombus within the axillary vein, brachial vein, and radial vein. The ulnar vein appears patent. In ad dition, there is intraluminal thrombus with obstruction involving the cephalic vein of the lower arm and the basilic vein involving the antecubital fossa and upper arm. IMPRESSION: Extensive deep venous thrombosis including the axillary, brachial, radial, as well as portions of the basilic and cephalic veins. Findings were discussed with nurse, Rosamaria, at the time of the dictation. Code T POS: OFF
[2019-05-24] MEDS: Multivitamins, Adult 10 ML, Folic Acid 1 MG, Thiamine HCl 100 MG in Dextrose 5 %-0.45 %... IV SCH (16:44)
[2019-05-24 16:54] VITALS: BP 143/79; TEMP 98.2
[2019-05-24] MEDS ORDERED: Apixaban 5 MG TAB PO SCH (17:15)
[2019-05-24 17:22] LABS: PTT 29.5 SEC (22.9-36.1); Prothrombin Time 12.9 SEC (12.0-14.7)
[2019-05-24 17:24] LABS: D-Dimer Test 2.89 *mcg/mL (0.27-0.43)
[2019-05-25] MEDS ORDERED: Lisinopril 2.5 MG TAB PO SCH (09:00)
[2019-05-25 09:05] LABS: Factor VIII Test 346.4 % ACTIVE (56-157); HEX PHOS LA Tube 1 52.7 SEC; HEX PHOS LA Tube 2 48.2 SEC; Hexagonal Phospholipid Neut 4.5 SEC (0-8.0)
[2019-05-25 10:24] LABS: Protein C Activity 55 % (78-152)
--- NOTE | 2019-05-25 10:52 | DIS ---
DATE OF ADMISSION: 05/21/2019 DATE OF DISCHARGE: 05/24/2019 RESIDENT: Ceci Vázquez MD. ADMITTING ATTENDING: Fabiana Senior MD. DISCHARGE ATTENDING: Miriam Childers MD CONSULTS: 1. Pulmonology, Dr. Parminder Rebollar. 2. Cardiology, Dr. Agusto Tao. PROCEDURES: 1. Abdomen x-ray on 05/21/2019, which showed a nasogastric tube overlying the mid to distal esophagus, which should be advanced. 2. Chest x-ray on 05/21/2019, nasogastric tube which overlies the mid to distal esophagus and should be advanced. 3. Endotracheal tube in place as above the level of the christiane. 4. Brain CT on 05/21/2019, which showed no evidence for acute intracranial hemorrhage or mass effect. 5. Left upper extremity ultrasound, which noted extensive deep venous thrombosis including the axillary, brachial, radial, as well as portions of the basilic and cephalic veins. PRIMARY DIAGNOSES: 1. Encephalopathy secondary to pulseless electrical activity status post ROSC. 2. Hypoglycemia. 3. Suicidal ideation. 4. Left upper extremity deep vein thrombosis. SECONDARY DIAGNOSES: 1. Type 1 diabetes mellitus. 2. History of alcohol abuse. DISCHARGE MEDICATIONS: 1. Humulin 70/30, 35 units subcu daily. 2. Humulin 70/30, 20 units subcu at bedtime. 3. Lisinopril 2.5 mg p.o. daily. 4. Eliquis 10 mg p.o. b.i.d. for 7 days and 5 mg p.o. b.i.d. for remaining prescription. DISCONTINUED MEDICATIONS: 1. Humulin 70/30, 15 units subcu at bedtime. 2. Humulin 70/30, 30 units subcu daily. HOSPITAL COURSE: The patient is a 44-year-old gentleman with a past medical history significant for alcohol abuse and type 1 diabetes mellitus, who presented to the emergency department, intubated and sedated after being found down in the field for an unknown period of time. Per the ER physicians, EMS reported that the patient was found down unresponsive by family and his blood glucose reading was undetectable upon arrival at the scene and the patient was apneic and pulseless. The patient was given D10 and CPR was started, which achieved ROSC and the patient's heart rate returned at 40 beats per minute. He was then intubated and brought to the emergency department for further evaluation and management. Upon arrival to the emergency department, the patient's vitals were noted to be within normal limits on the ventilator with the exception of hypothermia as his initial core temperature was 92.5 degrees Fahrenheit. In addition, shortly after arriving to the emergency department, the patient had a witnessed tonic-clonic seizure and was given 2 mg of IV Ativan. He was then given 50 mg of propofol and 50 mcg of fentanyl for sedation, 1 g of Vancocin, 4.5 g of Zosyn, and 2 L of normal saline before being transferred to the Intensive Care Unit for further management. Imaging including an abdominal x-ray, chest x-ray, and brain CT were all were obtained in the emergency department, which did not note any significant abnormalities. Lab work was significant for a blood alcohol level of 126, a white blood cell count of 10.9, a blood pH of 7.24 with pCO2 of 49.7, a blood glucose level of 113. Regarding the patient's encephalopathy, it was determined most likely to be secondary to hypoglycemia with superimposed alcohol intoxication as the patient quickly recovered and was extubated the next morning. Regarding his hypoglycemia, he was kept on D5W at 125 an hour until he was extubated and tolerating p.o. In fact, the patient was able to resume his home insulin regimen prior to being discharged with a slight increase in his a.m. and p.m. dosing for adequate glycemic control. Regarding his hypothermia, it was likely due to being down and pulseless for an unknown period of time. The patient was initially started on broad-spectrum antibiotics which were deescalated in the intensive care unit as his blood work and other vital signs did not show any evidence of acute infection and blood and urine cultures were also negative. Regarding his suicidal ideation, it was reported in the emergency department by the patient's family that he had multiple instances of professed suicidal wishes several days prior to his admission. Upon questioning, the patient denied any such admission; however, [facility] was consulted to evaluate the patient prior to discharge. [facility] recommended that the patient be discharged home as his family agreed to monitor him closely and a safety plan was set in place prior to him being discharged. Regarding his alcohol abuse, CHRISTOPHER protocol and p.r.n. Ativan were initiated for the entirety of the patient's hospital stay and he was counseled extensively on his need to abstain from alcohol to prevent progression into cirrhosis. [facility] was able to provide the patient with resources for assistance with abstaining from alcohol. Regarding the patient's left upper extremity DVT, on the date of discharge, the patient complained of sudden onset left upper extremity edema with some trace erythema, but denied any pain or fever or chills. However, given his history of one prior DVT many years ago, left upper extremity ultrasound was obtained which noted extensive deep vein thromboses in almost all vessels in his left upper extremity. The patient after counseling on anticoagulation at home with warfarin versus a novel oral anticoagulant, the patient opted to begin therapy with p.o. Eliquis and a coupon for 74 pills for free was provided to the patient by case management prior to his discharge. He was given one dose of p.o. Eliquis prior to leaving the hospital and encouraged to pickler helper his prescription that night with the following morning and continue therapy for a minimum of 3 to 6 months per the recommendations of his primary care provider. DISPOSITION: Stable. DISCHARGE INSTRUCTIONS: 1. Location: Home. 2. Diet: Consistent carb diet. 3. Activity: As tolerated. No restrictions. 4. Followup: The patient was instructed to follow up with [facility] in [facility] within 1 week of discharge. Job ID: [id number]
[2019-05-25 18:46] LABS: Cardiolipin IgA Ab 4.4 APL-U/mL (<14 Negative); Cardiolipin IgG Ab 0.7 GPL-U/mL (<10 Negative); Cardiolipin IgM Ab 2.6 MPL-U/mL (<10 Negative); EliA APS New Method **** NEW METHOD ****
== END 2019-05-24 18:37 | disposition home or self-care (01) | DRG 637 ==
LOC: EDBD 13:19 → ERS 13:19 → CCU 15:40 → T4-B 05-23 11:43
PROVIDERS: ADMIT Family Medicine; ATTEND Family Medicine
PROC: 5A1935Z Respiratory Ventilation, Less than 24 Consecutive Hours (ICD-10-PCS; principal; 2019-05-21)
DX: E10.649 Type 1 diabetes mellitus with hypoglycemia without coma (principal); G93.41 Metabolic encephalopathy; J96.01 Acute respiratory failure with hypoxia; I46.8 Cardiac arrest due to other underlying condition; I21.A1 Myocardial infarction type 2; R45.851 Suicidal ideations; R65.10 Systemic inflammatory response syndrome (SIRS) of non-infectious origin without acute organ dysfunction; F32.9 Major depressive disorder, single episode, unspecified; F10.20 Alcohol dependence, uncomplicated; T68.XXXA Hypothermia, initial encounter; Y90.6 Blood alcohol level of 120-199 mg/100 ml; D69.6 Thrombocytopenia, unspecified; F17.200 Nicotine dependence, unspecified, uncomplicated; G40.909 Epilepsy, unspecified, not intractable, without status epilepticus; Z79.4 Long term (current) use of insulin; Z86.718 Personal history of other venous thrombosis and embolism
CPT/HCPCS: 36415; 36416; 51702; 70450; 71045; 74018; 80053; 80061; 80306; 80307; 81003; 81015; 81240; 81241; 82010; 82550; 82553; 82805; 83036; 83090; 83690; 83735; 84100; 84443; 84484; 85025; 85060; 85240; 85300; 85303; 85305; 85307; 85379; 85598; 85610; 85730; 86147; 87040; 87086; 93005; 93010; 94002; 94003; 96365; 96368; 96375; J1815; J2060; J2543; J2704; J3010; J3360; J3370; J3411; J3490; J7042; S0028